=== PATIENT | female | born 1990 | race Caucasian/White ===

== ENCOUNTER 2016-12-24 08:11 | Emergency (ER) | payer MEDICAID ==
[~2016-12-24] VITALS: Ht 160 cm; Wt 70.4 kg
[~2016-12-24 08:11] MED LIST: ACET500T3 PO; CIPR250T52 PO
[2016-12-24 08:15] VITALS: BP 156/98; PULSE 84; RESP 16; TEMP 98.2; O2SAT 99
[2016-12-24 08:37] LABS: BLOOD, URINE NEG (NEG); GLUCOSE,URINE NEG (NEG); KETONE, URINE NEG (NEG); NITRITE,URINE NEG (NEG)
[2016-12-24 08:42] LABS: METHOD OF COLLECTION CLEAN CATCH; SQUAMOUS EPITHELIAL CELL URINE > 8 /hpf (0-5); URINE COLOR YELLOW (YELLW/STRAW); WBC, URINE 0-2 /hpf (0-5)
[2016-12-24 08:43] LABS: BACTERIA, URINE OCC /hpf; COMMENT (UR) CULT NOT INDICATED; CULTURE IF INDICATED CULT NOT INDICATED; RENAL EPITHELIAL CELLS 0-5 /hpf
--- NOTE | 2016-12-24 08:49 | PD ---
HPI Chief Complaint: Complaint Time Seen by Provider: 08:40 Travel History International Travel<30 days: No Contact w/Intl Traveler<30days: No Traveled to known affect area: No History of Present Illness HPI This is a 26-year-old female who has a history of IV drug use who presents to the emergency department with dysuria, constant, moderate severity for 3 days associated with a white vaginal discharge with a fishy odor. She has had one sexual partner in the last 6 months. She says they usually use condoms. She denies any fevers or chills. She has been told she's had PID in the past. She is currently 6 weeks clean from her IV drug use and is on probation getting weekly drug test. [facility] Past Medical History Medical History: Denies Significant Hx Hx Anticoagulant Therapy: No Diabetes: No Diminished Hearing: No Genitourinary: Yes (frequent uti's) Immunizations Current: No Tetanus Vaccination: < 5 Years Influenza Vaccination: No ?: Not LMP: 12/06/16 : 1 Para: 1 Past Surgical History Surgical History: No Previous Surgery Social History Alcohol Use: No Tobacco Use: Yes (2 ppd) Substance Use: Yes ( hx of IV DILAUDID, THC, states in recovery) Allergies-Medications (Allergen,Severity, Reaction): Coded Allergies: No Known Allergies (Unverified , 12/24/16) Reported Meds & Prescriptions Reported Meds & Active Scripts Active No Active Prescriptions or Reported Medications Review of Systems Except as stated in HPI: all other systems reviewed are Neg Physical Exam Narrative GENERAL:Well appearing, no acute distress SKIN: Focused skin assessment warm and dry. HEAD: Atraumatic. Normocephalic. EYES: Pupils equal and round. No injection or drainage. ENT: Moist mucous membranes NECK: Trachea midline. CARDIOVASCULAR: Regular rate and rhythm. No murmur appreciated. RESPIRATORY: Clear to auscultation. Breath sounds equal bilaterally. GASTROINTESTINAL: Abdomen soft, moderately tender to palpation in the lower abdomen with no rebound or guarding. FIGURINE MAKER: White discharge in the vault with cervical motion tenderness and bilateral adnexal tenderness MUSCULOSKELETAL: No obvious deformities. NEUROLOGICAL: Awake and alert. No obvious cranial nerve deficits. Moving all extremities. PSYCHIATRIC: Appropriate mood and affect; insight and judgment normal. Data Data Last Documented VS Vital Signs Date Time Temp Pulse Resp B/P Pulse Ox O2 Delivery O2 Flow Rate FiO2 12/24/16 08:43 16 12/24/16 08:15 98.2 84 156/98 99 Orders Urinalysis - C+S If Indicated (12/24/16 08:14) Wet Prep Profile (12/24/16 08:45) Gc And Chlamydia Pcr (12/24/16 08:45) Labs Laboratory Tests Test 12/24/16 12/24/16 08:20 09:00 Urine Collection Type CLEAN CATCH Urine Color YELLOW Urine Turbidity CLEAR Urine pH 6.0 Urine Specific [place] 1.008 Urine Protein NEG mg/dL Urine Glucose (UA) NEG mg/dL Urine Ketones NEG mg/dL Urine Occult Blood NEG Urine Nitrite NEG Urine Bilirubin NEG Urine Leukocyte Esterase NEG Urine WBC 0-2 /hpf Urine Squamous Epithelial > 8 /hpf Cells Urine Renal Epithelial Cells 0-5 /hpf Urine Bacteria OCC /hpf Urine Trichomonas Microscopic Urinalysis Comment CULT NOT INDICATED Urine Collection Time 08:20 Clue Cells (Wet Prep) NONE SEEN Vaginal Trichomonas (Wet Prep) NONE SEEN Vaginal Yeast (Wet Prep) NONE SEEN MDM Medical Decision Making Medical Screen Exam Complete: Yes Emergency Medical Condition: Yes Interpretation(s) Afebrile, no tachycardia, hypertensive Urinalysis: No infection Wet prep: Negative Differential Diagnosis Pelvic inflammatory disease, urinary tract infection, Trichomonas, yeast infection, bacterial vaginosis Narrative Course This is a 26-year-old female who presents to the emergency department with abdominal discomfort, dysuria and vaginal discharge. On pelvic exam she has a fair amount of discharge with cervical motion and adnexal tenderness consistent with pelvic inflammatory disease. She is otherwise nontoxic appearing. Patient will be treated with antibiotic therapy. Diagnosis Primary Impression: Pelvic inflammatory disease Patient Instructions: General Instructions Additional Instructions: If you develop fever, chills, severe abdominal pain, persistent vomiting or inability to eat return to the emergency department. Your pelvic exam today did not include a Pap smear. It is important to followup with a sports reporter on a yearly basis to be tested for cervical cancer as we do not do that from the emergency department. If there is a concern that you have sexually transmitted disease, your partner should be tested. You should followup with your sports reporter or with the health department to get tested for other sexually transmitted diseases like HIV and syphilis, as we do not test for these in the emergency department Med/Other Pt SpecificInfo: Prescription(s) given Scripts No Active Prescriptions or Reported Meds Disposition: 01 DISCHARGE HOME Condition: Stable Keerthi Lebron MD December 24, 2016 08:49
[2016-12-24] MEDS ORDERED: DOXY100C PO (09:56)
[2016-12-24] MEDS ORDERED: LIDOCAINE HCL 1% 50 ML VIAL IM ONE (10:00)
[2016-12-24] MEDS ORDERED: cefTRIAXone 250 MG VIAL IM ONE (10:00)
[2016-12-24 10:44] VITALS: BP 142/83
[2016-12-24 12:53] LABS: CHLAMYDIA PCR NOT DETECTED (NOT DETECT); NEISSERIA PCR NOT DETECTED (NOT DETECT)
== END 2016-12-24 10:46 | disposition home or self-care (01) ==
LOC: PHED 08:11
DX: N73.9 Female pelvic inflammatory disease, unspecified (principal); F17.200 Nicotine dependence, unspecified, uncomplicated; Z87.898 Personal history of other specified conditions
CPT/HCPCS: 81001; 87210; 87491; 87591; 96372; 99284; J0696

== ENCOUNTER 2017-04-01 09:53 | Emergency (ER) | payer MEDICAID ==
[~2017-04-01] VITALS: Ht 162.6 cm; Wt 69.0 kg
[~2017-04-01 09:53] MED LIST changes: -ACET500T3 PO; -CIPR250T52 PO; +DOXY100C PO
[2017-04-01 09:59] VITALS: BP 152/83; PULSE 90; RESP 18; TEMP 98.2; O2SAT 99
--- NOTE | 2017-04-01 10:39 | PD ---
HPI Chief Complaint: Display Trimmer Problem/Complaint Time Seen by Provider: 10:29 Travel History International Travel<30 days: No Contact w/Intl Traveler<30days: No Traveled to known affect area: No History of Present Illness HPI 26-year-old female presents with vaginal bleeding for 1 month and cough for one week. She denies other complaints. She states she is having difficulty getting in with her insurance her she elected to come here to get checked out. She denies any other concurrent complaints. She states she has had her arms and plan in for 2 years for control and lost her primary care physician after missing 2 appointments when she was in [facility]. Quality is bright red. Duration is one month. PFSH Past Medical History Medical History: Denies Significant Hx Hx Anticoagulant Therapy: No Diabetes: No Diminished Hearing: No Genitourinary: Yes (frequent uti's) Immunizations Current: No Tetanus Vaccination: < 5 Years Influenza Vaccination: No ?: Not LMP: 03/01/17 : 1 Para: 1 Past Surgical History Surgical History: No Previous Surgery Social History Alcohol Use: No Tobacco Use: Yes (1 PPD) Substance Use: Yes ( hx of IV DILAUDID, THC, states in recovery) Allergies-Medications (Allergen,Severity, Reaction): Coded Allergies: No Known Allergies (Unverified , 04/01/17) Reported Meds & Prescriptions Reported Meds & Active Scripts Active No Active Prescriptions or Reported Medications Review of Systems Except as stated in HPI: all other systems reviewed are Neg Physical Exam Narrative General: No apparent distress, well appearing ENT: Posterior oropharyngx clear without exudate or erythema, external auditory canals are normal. Bilateral TM clear Neck: Neck is supple, no meningeal signs, trachea is midline Cardiovascular: Regular rate and rhythm Lungs: No increased respiratory effort noted, CTA bilaterally Abdomen: Soft, NT, ND, no rebound or guarding Extremities: No edema Neuro: Awake, motor and sensation grossly intact, normal speech Data Data Last Documented VS Vital Signs Date Time Temp Pulse Resp B/P (MAP) Pulse Ox O2 Delivery O2 Flow Rate FiO2 04/01/17 09:59 98.2 90 18 152/83 (106) 99 Orders Orders Hemoglobin (Hgb) (04/01/17 10:34) Ed Urine Pregnancytest Poc (04/01/17 10:34) Labs Laboratory Tests Test 04/01/17 10:44 Hemoglobin 13.5 GM/DL MDM Medical Decision Making Medical Screen Exam Complete: Yes Emergency Medical Condition: Yes Medical Record Reviewed: Yes (past history confirmed) Interpretation(s) hgb stable, beta is negative Differential Diagnosis Upper respiratory infection, reactive airway disease, anemia, , dysfunctional uterine bleeding Narrative Course Will check hemoglobin and tests and if these are normal she can follow further outpatient in terms of her bleeding, for cough for a week she is stable vitals and exam. Advised smoking cessation and supportive care Patient was stable hemoglobin, beta is negative, advised to follow-up outpatient , questions answered Diagnosis Primary Impression: Vaginal bleeding Additional Impression: Cough Patient Instructions: General Instructions Additional Instructions: return as needed, follow with gynecology and a primary Med/Other Pt SpecificInfo: No Change to Meds Scripts No Active Prescriptions or Reported Meds Disposition: 01 DISCHARGE HOME Condition: Stable Shahnaz Arroyo MD Apr 01, 2017 10:39
== END 2017-04-01 11:27 | disposition home or self-care (01) ==
LOC: PHED 09:53
DX: N93.9 Abnormal uterine and vaginal bleeding, unspecified (principal); R05 Cough
CPT/HCPCS: 84703; 85018; 99283

== ENCOUNTER 2017-06-21 11:12 | Emergency (ER) | payer MEDICAID ==
[~2017-06-21] VITALS: Ht 162.6 cm; Wt 70.0 kg
[2017-06-21 11:14] VITALS: BP 149/79; PULSE 102; RESP 16; TEMP 98.6; O2SAT 100
[2017-06-21] MEDS ORDERED: CEPH-460 PO (12:20)
--- NOTE | 2017-06-21 12:21 | PD ---
HPI Chief Complaint: Skin Problem Time Seen by Provider: 12:17 Travel History International Travel<30 days: No Contact w/Intl Traveler<30days: No Traveled to known affect area: No History of Present Illness HPI Patient presents for abscess in her left inguinal region. She does shave regularly. Denies any nausea vomiting diarrhea or fever. Denies . Currently on her menses PFSH Past Medical History Medical History: Denies Significant Hx Hx Anticoagulant Therapy: No Diabetes: No Diminished Hearing: No Genitourinary: Yes (frequent uti's) Immunizations Current: No Influenza Vaccination: No ?: Not LMP: NOW/NEXPLANON : 1 Para: 1 Past Surgical History Surgical History: No Previous Surgery Social History Alcohol Use: No Tobacco Use: Yes (1 PPD) Substance Use: Yes ( hx of IV DILAUDID, THC, states in recovery) Allergies-Medications (Allergen,Severity, Reaction): Coded Allergies: No Known Allergies (Unverified Adverse Reaction, Unknown, 06/21/17) Reported Meds & Prescriptions Reported Meds & Active Scripts Active No Active Prescriptions or Reported Medications Review of Systems General / Constitutional: No: Fever Eyes: No: Visual changes HENT: No: Headaches Cardiovascular: No: Chest Pain or Discomfort Respiratory: No: Shortness of Breath Gastrointestinal: No: Abdominal Pain Genitourinary: No: Dysuria Musculoskeletal: No: Pain Skin: No Rash Neurologic: No: Weakness Psychiatric: No: Depression Endocrine: No: Polydipsia Hematologic/Lymphatic: No: Easy Bruising Physical Exam Narrative GENERAL: Well-nourished, well-developed patient. SKIN: Focused skin assessment warm/dry. HEAD: Normocephalic. EYES: No scleral icterus. No injection or drainage. NECK: Supple, trachea midline. No JVD or lymphadenopathy. CARDIOVASCULAR: Regular rate and rhythm without murmurs, gallops, or rubs. RESPIRATORY: Breath sounds equal bilaterally. No accessory muscle use. GASTROINTESTINAL: Abdomen soft, non-tender, nondistended. MUSCULOSKELETAL: No cyanosis, or edema. BACK: Nontender without obvious deformity. No CVA tenderness. Palpable left inguinal abscess nonfluctuant Data Data Last Documented VS Vital Signs Date Time Temp Pulse Resp B/P (MAP) Pulse Ox O2 Delivery O2 Flow Rate FiO2 06/21/17 11:14 98.6 102 16 149/79 (102) 100 MDM Medical Decision Making Medical Screen Exam Complete: Yes Emergency Medical Condition: Yes Differential Diagnosis Folliculitis, abscess, cellulitis Narrative Course Assessment and plan discussed with patient at bedside. Diagnosis Primary Impression: Inguinal abscess Patient Instructions: General Instructions Additional Instructions: Encouraged keep the area clean and dry, oral antibiotics as prescribed, encouraged warm compresses, follow-up with PCP, return to emergency room with onset of any new symptoms. Motrin or Tylenol for pain. Med/Other Pt SpecificInfo: Prescription(s) given Scripts Cephalexin (Keflex) 500 Mg Cap 500 MG PO TID for Infection for 10 Days, CAP 0 Refills Prov: Winston Marie MD 06/21/17 Disposition: 01 DISCHARGE HOME Condition: Good Winston Marie MD Jun 21, 2017 12:20
[2017-06-21 12:30] VITALS: BP 140/70; PULSE 90; RESP 18; O2SAT 100
== END 2017-06-21 12:32 | disposition home or self-care (01) ==
LOC: PHED 11:12
DX: L02.214 Cutaneous abscess of groin (principal); F17.210 Nicotine dependence, cigarettes, uncomplicated
CPT/HCPCS: 99283

== ENCOUNTER 2017-10-13 12:33 | Emergency (ER) | payer OTHER, MEDICAID ==
[~2017-10-13] VITALS: Ht 160 cm; Wt 72.0 kg
[~2017-10-13 12:33] MED LIST changes: +CEPH-460 PO; -DOXY100C PO
[2017-10-13 12:43] VITALS: BP 145/78; PULSE 80; RESP 18; TEMP 97.8; O2SAT 98
[2017-10-13] MEDS ORDERED: ORPHENADRINE INJ 60 MG/2 ML AMP IM ONE (13:00)
[2017-10-13] MEDS ORDERED: KETOROLAC TROMETHAMINE 60 MG/2 ML (IM) VIAL IM ONE (13:00)
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
[2017-10-13] MEDS ORDERED: PRED20 PO (14:41)
[2017-10-13] MEDS ORDERED: ROBA500T PO (14:41)
[2017-10-13] MEDS ORDERED: DICL75TA PO (14:41)
== END 2017-10-13 14:30 | disposition home or self-care (01) ==
LOC: PHEFT 12:33
DX: S13.4XXA Sprain of ligaments of cervical spine, initial encounter (principal); S70.01XA Contusion of right hip, initial encounter; V49.49XA Driver injured in collision with other motor vehicles in traffic accident, initial encounter; F17.210 Nicotine dependence, cigarettes, uncomplicated
CPT/HCPCS: 70450; 71045; 72072; 72125; 73502; 84703; 96372; 99284; J1885; J2360; L0120; L0150

== ENCOUNTER → 2017-10-26 | Emergency (ER) | payer MEDICAID ==
[~2017-10-26] VITALS: Ht 160 cm; Wt 69.0 kg
[~2017-10-26] MED LIST changes: -CEPH-460 PO; +DICL75TA PO; +PRED20 PO; +ROBA500T PO
[2017-10-26 16:11] VITALS: BP 146/94; PULSE 103; RESP 16; TEMP 98.3; O2SAT 97
== END | disposition left against medical advice (07) ==
LOC: PHED 16:07
DX: R21 Rash and other nonspecific skin eruption (principal); Z53.21 Procedure and treatment not carried out due to patient leaving prior to being seen by health care provider
CPT/HCPCS: 99281